=== PATIENT | female | born 1985 | race Caucasian/White ===

== ENCOUNTER 2018-10-21 18:28 | Emergency (ER) | payer BC ==
[2018-10-21 20:35] LABS: Hematocrit 45 % (35-47); Hemoglobin 15.1 g/dl (12.0-16.0); Mean Corpuscular HGB Conc 34 g/dl (31-36); Mean Corpuscular Hemoglobin 32 pg (27-31); Mean Corpuscular Volume 95 fL (80-97); Mean Platelet Volume 11.3 fL (7.4-10.4); Platelet Count 209 10^3/ul (150-450); Red Blood Count 4.73 10^6/ul (4.00-5.40); Red Cell Distribution Width 12 % (10.5-15); White Blood Count 9.8 10^3/ul (3.5-10.8)
[2018-10-21 20:52] LABS: ALT 16 U/L (7-52); AST 15 U/L (13-39); Albumin 4.7 g/dL (3.2-5.2); Alkaline Phosphatase 44 U/L (34-104); Anion Gap 6 mmol/L (2-11); BUN/Creatinine Ratio 11.5 (8-20); Blood Urea Nitrogen 9 mg/dL (6-24); C Reactive Protein < 1.00 mg/L (<8.01); CO2 Carbon Dioxide 25 mmol/L (22-32); Calcium 9.3 mg/dL (8.6-10.3); Chloride 105 mmol/L (101-111); EGFR African American 104.9 (>60); EGFR Non-African American 86.7 (>60); Globulin 2.4 g/dL (2-4); Glucose 90 mg/dL (70-100); Potassium 4.2 mmol/L (3.5-5.0); Sodium 136 mmol/L (135-145); Total Protein 7.1 g/dL (6.4-8.9)
[2018-10-21] MEDS ORDERED: Pantoprazole IV* 40 MG IV ONE (20:59)
[2018-10-21] MEDS ORDERED: Metoclopramide IV* 5 MG/ML 2 ML VIAL IV SLOW PU ONE (20:59)
[2018-10-21] MEDS ORDERED: NS 0.9% 1000 ML** 1,000 ML IV ONE (20:59)
--- NOTE | 2018-10-21 21:33 | ED ---
Abdominal Pain/Female - HPI Summary HPI Summary: This patient is a 32 year old F presenting to [facility] with a chief complaint of epigastric pain since 1 day ago. The patient notes that she vomited several times yesterday and then vomited blood. The patient rates the pain 6/10 in severity. Symptoms aggravated by nothing. Symptoms alleviated by nothing. Patient reports diarrhea. Patient denies fever or any N/V today. Patient denies any relief from taking antacids. Pt notes she takes medications for her thyroid as well as B12. - History of Current Complaint Chief Complaint: EDAbdPain Stated Complaint: VOMITING BLOOD Time Seen by Provider: 10/21/18 20:30 Hx Obtained From: Patient Onset/Duration: Gradual Onset, Lasting Days - 1 day, Still Present Timing: Days - 1 day Severity Initially: Mild Severity Currently: Mild Pain Intensity: 6 Pain Scale Used: 0-10 Numeric Location: Discrete At: RUQ, Epigastric Radiates: No Aggravating Factor(s): Nothing Alleviating Factor(s): Nothing Associated Signs and Symptoms: Positive: Nausea, Vomiting - hematemesis Allergies/Adverse Reactions: Allergies Allergy/AdvReac Type Severity Reaction Status Date / Time MS Oxycodone [Oxycodone] Allergy Unknown Unknown Verified 02/17/13 13:27 Reaction Details Adhesive Tape Allergy ITCHING, Verified 02/17/13 13:27 SWELLING MS Amoxicillin [Amoxicillin] Allergy ITCHING Verified 02/17/13 13:27 AND SWELLING MS Hydrocodone [Hydrocodone] Allergy ITCHING Verified 02/17/13 13:27 AND SWELLING PMH/Surg Hx/FS Hx/Imm Hx Endocrine/Hematology History: Reports: Hx Thyroid Disease - HYPOTHYROID Respiratory History: Reports: Hx Sleep Apnea, Other Respiratory Problems/ Disorders - IN GENERAL TROUBLE BREATHING, HAS A BAD GAG REFLEX GI History: Reports: Hx Gastroesophageal Reflux Disease History: Reports: Hx Kidney Stones - NONE IN A FEW YEARS Sensory History: Denies: Hx Contacts or Glasses, Hx Hearing Aid Opthamlomology History: Denies: Hx Contacts or Glasses Neurological History: Reports: Hx Headaches Psychiatric History: Reports: Hx Anxiety - ON MEDICATION FOR, Hx Depression - ON MEDICATION FOR - Surgical History Surgery Procedure, Year, and Place: SURGERIES FOR KIDNEY STONES Hx Anesthesia Reactions: No Infectious Disease History: No Infectious Disease History: Denies: Traveled Outside the [place] in Last 30 Days - Family History Known Family History: Negative: Diabetes - Social History Alcohol Use: Occasionally Substance Use Type: Reports: None Smoking Status (MU): Heavy Every Day Tobacco Smoker Review of Systems Negative: Fever Negative: Epistaxis Negative: Cough Positive: Abdominal Pain - epigastric and RUQ, Diarrhea. Negative: Vomiting, Nausea Negative: Headache All Other Systems Reviewed And Are Negative: Yes Physical Exam - Summary Physical Exam Summary: VITAL SIGNS: Reviewed. GENERAL: Patient is a well-developed and nourished FEMALE who is lying comfortable in the stretcher. Patient is not in any acute respiratory distress. HEAD AND FACE: No signs of trauma. No ecchymosis, hematomas or skull depressions. No sinus tenderness. EYES: PERRLA, EOMI x 2, No injected conjunctiva, no nystagmus. EARS: Hearing grossly intact. Ear canals and tympanic membranes are within normal limits. MOUTH: Oropharynx within normal limits. NECK: Supple, trachea is midline, no adenopathy, no JVD, no carotid bruit, no c- spine tenderness, neck with full ROM. CHEST: Symmetric, no tenderness at palpation LUNGS: Clear to auscultation bilaterally. No wheezing or crackles. CVS: Regular rate and rhythm, S1 and S2 present, no murmurs or gallops appreciated. ABDOMEN: Soft, epigastric and RUQ tenderness. No signs of distention. No rebound no guarding, and no masses palpated. Bowel sounds are normal. EXTREMITIES: FROM in all major joints, no edema, no cyanosis or clubbing. NEURO: Alert and oriented x 3. No acute neurological deficits. Speech is normal and follows commands. SKIN: Dry and warm Triage Information Reviewed: Yes Vital Signs On Initial Exam: Initial Vitals Temp Pulse Resp BP Pulse Ox 97.3 F 87 20 145/90 96 10/21/18 18:30 10/21/18 18:30 10/21/18 18:30 10/21/18 18:30 10/21/18 18:30 Vital Signs Reviewed: Yes Diagnostics - Vital Signs Vital Signs Temp Pulse Resp BP Pulse Ox 10/21/18 18:30 97.3 F 87 20 145/90 96 - Laboratory Lab Results: Lab Results 10/21/18 10/21/18 10/21/18 Range/Units 20:27 20:27 20:27 WBC 9.8 (3.5-10.8) 10^3/ul RBC 4.73 (4.00-5.40) 10^6/ul Hgb 15.1 (12.0-16.0) g/dl Hct 45 (35-47) % MCV 95 (80-97) fL MCH 32 H (27-31) pg MCHC 34 (31-36) g/dl RDW 12 (10.5-15) % Plt Count 209 (150-450) 10^3/ul MPV 11.3 H (7.4-10.4) fL Neut % (Auto) Pending Lymph % (Auto) Pending Bibb % (Auto) Pending Eos % (Auto) Pending Baso % (Auto) Pending Absolute Neuts (auto) Pending Absolute Lymphs (auto) Pending Absolute Monos (auto) Pending Absolute Eos (auto) Pending Absolute Basos (auto) Pending Absolute Nucleated RBC Pending Nucleated RBC % Pending Sodium 136 (135-145) mmol/L Potassium 4.2 (3.5-5.0) mmol/L Chloride 105 (101-111) mmol/L Carbon Dioxide 25 (22-32) mmol/L Anion Gap 6 (2-11) mmol/L BUN 9 (6-24) mg/dL Creatinine 0.78 (0.51-0.95) mg/dL Est GFR ( Amer) 104.9 (>60) Est GFR (Non-Af Amer) 86.7 (>60) BUN/Creatinine Ratio 11.5 (8-20) Glucose 90 (70-100) mg/dL Lactic Acid 0.7 (0.5-2.0) mmol/L Calcium 9.3 (8.6-10.3) mg/dL Total Bilirubin 0.80 (0.2-1.0) mg/dL AST 15 (13-39) U/L ALT 16 (7-52) U/L Alkaline Phosphatase 44 (34-104) U/L C-Reactive Protein < 1.00 (<8.01) mg/L Total Protein 7.1 (6.4-8.9) g/dL Albumin 4.7 (3.2-5.2) g/dL Globulin 2.4 (2-4) g/dL Albumin/Globulin Ratio 2.0 (1-3) Lipase < 10 L (11.0-82.0) U/L Beta HCG, Quant mIU/mL Blood Type Antibody Screen 10/21/18 10/21/18 Range/Units 20:27 20:27 WBC (3.5-10.8) 10^3/ul RBC (4.00-5.40) 10^6/ul Hgb (12.0-16.0) g/dl Hct (35-47) % MCV (80-97) fL MCH (27-31) pg MCHC (31-36) g/dl RDW (10.5-15) % Plt Count (150-450) 10^3/ul MPV (7.4-10.4) fL Neut % (Auto) Lymph % (Auto) Bibb % (Auto) Eos % (Auto) Baso % (Auto) Absolute Neuts (auto) Absolute Lymphs (auto) Absolute Monos (auto) Absolute Eos (auto) Absolute Basos (auto) Absolute Nucleated RBC Nucleated RBC % Sodium (135-145) mmol/L Potassium (3.5-5.0) mmol/L Chloride (101-111) mmol/L Carbon Dioxide (22-32) mmol/L Anion Gap (2-11) mmol/L BUN (6-24) mg/dL Creatinine (0.51-0.95) mg/dL Est GFR ( Amer) (>60) Est GFR (Non-Af Amer) (>60) BUN/Creatinine Ratio (8-20) Glucose (70-100) mg/dL Lactic Acid (0.5-2.0) mmol/L Calcium (8.6-10.3) mg/dL Total Bilirubin (0.2-1.0) mg/dL AST (13-39) U/L ALT (7-52) U/L Alkaline Phosphatase (34-104) U/L C-Reactive Protein (<8.01) mg/L Total Protein (6.4-8.9) g/dL Albumin (3.2-5.2) g/dL Globulin (2-4) g/dL Albumin/Globulin Ratio (1-3) Lipase (11.0-82.0) U/L Beta HCG, Quant < 0.60 mIU/mL Blood Type O Positive Antibody Screen Pending Result Diagrams: 10/21/18 20:27 02/06/19 20:27 Lab Statement: Any lab studies that have been ordered have been reviewed, and results considered in the medical decision making process. - Additional Comments Diagnostic Additional Comments: US gallbladder: Interpreted by radiologist. Impression: no acute findings. Dr. Waters has reviewed this report. Abdominal Pain Fem Course/Dx - Course Course Of Treatment: This patient is a 32 year old F presenting to [facility] with a chief complaint of epigastric pain since 1 day ago. The patient notes that she vomited several times yesterday and then vomited blood. Patient reports diarrhea. Patient denies fever or any N/V today. US gallbladder reveals, per radiologist, no acute findings. ED physician has reviewed this radiology report. Test results with no significant abnormalities. In the ED course the patient was given protonix, IV fluids, and Reglan. Patient will be discharged home with prescription for Reglan and follow up from PCP. Dx gastroenteritis. The patient is agreeable with this plan. - Diagnoses Provider Diagnoses: Gastroenteritis Discharge - Sign-Out/Discharge Documenting (check all that apply): Patient Departure - discharge home Patient Received Moderate/Deep Sedation with Procedure: No - Discharge Plan Condition: Stable Disposition: HOME Prescriptions: Metoclopramide TAB* [Reglan TAB*] 10 mg PO Q6H PRN #20 tab PRN Reason: Nausea/Vomiting Pantoprazole TAB * [Protonix TAB*] 40 mg PO DAILY #30 tab Patient Education Materials: Gastroenteritis (ED) Referrals: Erika Park MD [Primary Care Provider] - Additional Instructions: Follow up with primary care physician physician in 1-2 days. Return to the emergency department with any new or worsening symptoms. - Attestation Statements Document Initiated by Scribe: Yes Documenting Scribe: Dang Urbano Provider For Whom Kimberlyibmontse is Documenting (Include Credential): Clive Waters MD Scribe Attestation: Dang Garcia, scribed for Clive Waters MD on 10/21/18 at [id number]. Status of Scribe Document: Ready
[2018-10-21 21:59] LABS: ABS Basophils 0.1 10^3/ul (0-0.2); ABS Eosinophils 0.1 10^3/ul (0-0.6); ABS Lymphocytes 3.8 10^3/ul (1.0-4.8); ABS Monocytes 0.5 10^3/ul (0-0.8); ABS Neutrophils 5.3 10^3/ul (1.5-7.7); ABS Nucleated RBC 0 10^3/ul; Eosinophil % 1.3 %; Lymphocyte % 38.6 %; Nucleated Red Blood Cells % 0.1
[2018-10-21 22:40] LABS: Urine Appearance Cloudy; Urine Bilirubin Negative (Negative); Urine Blood Negative (Negative); Urine Color Yellow; Urine Glucose Negative (Negative); Urine Ketones 2+ (Negative); Urine Nitrite Negative (Negative); Urine Protein Negative (Negative); Urine Urobilinogen Negative (Negative)
[2018-10-21 23:37] VITALS: BP 118/81
== END 2018-10-21 23:38 | disposition home or self-care (01) ==
LOC: ED 18:28
DX: K52.9 Noninfective gastroenteritis and colitis, unspecified (principal); E03.9 Hypothyroidism, unspecified; F41.9 Anxiety disorder, unspecified; F32.9 Major depressive disorder, single episode, unspecified; Z87.442 Personal history of urinary calculi; Z88.5 Allergy status to narcotic agent; Z88.0 Allergy status to penicillin; Z72.0 Tobacco use
CPT/HCPCS: 36415; 76705; 80053; 81003; 83605; 83690; 84702; 85025; 86140; 86850; 86900; 86901; 93005; 96361; 96374; 96375; 99284; J2765